=== PATIENT | male | born 1945 | race Caucasian/White ===

== ENCOUNTER 2017-09-16 09:58 | Day surgery (SDC) | payer MEDICARE, OTHER ==
[~2017-09-16] VITALS: Ht 180.3 cm; Wt 152.9 kg
[~2017-09-16 09:58] MED LIST: LISI5 PO; METO50 PO; OMEP20ER PO; POTA10T PO; PRAV20 PO; TRAM50 PO
[2017-09-16] MEDS ORDERED: WARF10 (10:44)
[2017-09-16] MEDS ORDERED: FURO20 (10:44)
== END 2017-09-16 12:00 | disposition home or self-care (01) ==
LOC: ORSCSDS 09:58
PROVIDERS: Internal Medicine Gastroenterology
PROC: 0DJD8ZZ Inspection of Lower Intestinal Tract, Via Natural or Artificial Opening Endoscopic (ICD-10-PCS; principal; 2017-09-16 11:15)
DX: K62.5 Hemorrhage of anus and rectum (principal); K57.30 Diverticulosis of large intestine without perforation or abscess without bleeding; K64.8 Other hemorrhoids; I25.10 Atherosclerotic heart disease of native coronary artery without angina pectoris; I10 Essential (primary) hypertension; E78.5 Hyperlipidemia, unspecified; G47.30 Sleep apnea, unspecified; Z68.42 Body mass index [BMI] 45.0-49.9, adult; E66.9 Obesity, unspecified; Z79.01 Long term (current) use of anticoagulants; Z79.82 Long term (current) use of aspirin; Z79.899 Other long term (current) drug therapy
CPT/HCPCS: J7120

== ENCOUNTER 2018-08-11 06:10 | Day surgery (SDC) | payer MEDICARE, OTHER ==
[~2018-08-11] VITALS: Ht 180.3 cm; Wt 131.2 kg
[~2018-08-11 06:10] MED LIST changes: +ALBU90OI61; +FURO20; +Flovent 110 MCG12 GM; +LO-DOSE ASPIRIN81 MG; +LOMAIRA8 MG; +METO25; +TOPI50; +WARF10
== END 2018-08-11 08:37 | disposition home or self-care (01) ==
LOC: ORSCSDS 06:10
PROVIDERS: Surgery
PROC: 0JB70ZZ Excision of Back Subcutaneous Tissue and Fascia, Open Approach (ICD-10-PCS; principal; 2018-08-11 07:30)
DX: D17.1 Benign lipomatous neoplasm of skin and subcutaneous tissue of trunk (principal); I10 Essential (primary) hypertension; J45.909 Unspecified asthma, uncomplicated; I25.10 Atherosclerotic heart disease of native coronary artery without angina pectoris; Z79.01 Long term (current) use of anticoagulants; Z79.82 Long term (current) use of aspirin; Z79.899 Other long term (current) drug therapy
CPT/HCPCS: 88305; J2001; J2250; J3010; J7120

== ENCOUNTER 2018-11-23 10:31 | Day surgery (SDC) | payer MEDICARE, OTHER ==
[2018-11-22 15:25] LABS: International Normalized Ratio 1.02; Prothrombin Time Results 10.8 Sec (9.7-11.5)
[~2018-11-23] VITALS: Ht 177.8 cm; Wt 128.0 kg
[~2018-11-23 10:31] MED LIST changes: -ALBU90OI61; +ALBU90OI61 INH; -FURO20; +FURO20 PO; +IBUP800 PO; -LO-DOSE ASPIRIN81 MG; -LOMAIRA8 MG; +LOMAIRA8 MG PO; -METO25; +METO25 PO; +TOPI25 PO; +WARF1 PO; +[UNRECOGNIZED DRUG - OTHER] PO
--- NOTE | 2018-11-23 11:05 | NUR ---
PT ADMITTED TO [facility]. AGREES WITH PLANNED SURGER. LUNG SOUNDS COURSE T/O.
--- NOTE | 2018-11-23 11:27 | NUR ---
NOZIN TO NARES BILATERALLY PER ORDER.
--- NOTE | 2018-11-23 14:40 | NUR ---
11/23/18 1440 Hitesh Rojo PT NOTED TO HAVE "POST" MISSING ON IMPLANTED DEVICE S/P CLOSURE OF INCISION BY DR BONDS. PT RE-PREPPED AND DRAPED IN STERILE FASHION, INCISION RE-OPENED AND POST IMPLANTED BY DR BONDS.
--- NOTE | 2018-11-23 17:40 | NUR ---
PROGRESS 1656: PATIENT ADMIN DILAUDID FOR PAIN, REPORTED ESCALATED QUICKLY SPINAL WORE OFF. 1725: 140/63 HR 40 RESP 16 BIOX 98. PATIENT DOZING, AWAKENS EASILY, THEN HR 50. O2 AT 1 L PLACED. [address] BONDS TO INFORM OF HR. NO FURTHER ORDERS. WILL CONT TO MONITOR.
--- NOTE | 2018-11-23 18:10 | NUR ---
PATIENT AWAKE, TAKING DINNER. HR IN 50'S. OTHER VSS. STATES PAIN TOLERABLE.
--- NOTE | 2018-11-23 18:50 | NUR ---
SUMMARY PATIENT STATES HE FEELS MORE COMFORTABLE AFTER EATING AND REPOSITIONED. HR REMAINS IN 50'S. CONTINUOUS MONITOR. REPORT TO NUNU SMITH. LIVESTOCK COUNTER ASSISTING WITH URINAL.
--- NOTE | 2018-11-24 04:44 | NUR ---
SHIFT SUMMARY: PT POD #1 FOR LEFT TOTAL KNEE. A&O X4. VS WNL. AQUACEL DRESSING CDI WITH POLAR PACK IN PLACE. PAIN MANAGED WITH TYLENOL, TORADOL AND 10MG JUSTIN PER EMAR. PT OUT OF BED TO BATHROOM W/FWW + 1 MINIMAL ASSIST. AMBULATED HALLWAY X1. PT OUT OF BED AND SITTING IN CHAIR THIS MORNING. VOIDING WELL. HONORIO PO. DENIES N/V. SALINE LOCKED.
[2018-11-24 05:18] LABS: BASOPHILS ABSOLUTE AUTO 0.04 K/mm3 (0.00-0.23); BASOPHILS PERCENT AUTO 0 % (0-2); EOSINOPHILS ABSOLUTE AUTO 0.13 K/mm3 (0.00-0.68); EOSINOPHILS PERCENT AUTO 1 % (0-6); Hematocrit 40.5 % (37.0-53.0); IMMATURE GRAN ABSOLUTE AUTO 0.03 K/mm3 (0.00-0.10); IMMATURE GRAN PERCENT AUTO 0 % (0-1); LYMPHOCYTES ABSOLUTE AUTO 1.23 K/mm3 (0.84-5.20); LYMPHOCYTES PERCENT AUTO 12 % (21-46); MONOCYTES ABSOLUTE AUTO 0.84 K/mm3 (0.16-1.47); MONOCYTES PERCENT AUTO 8 % (4-13); Mean Corpuscular HGB 31.6 pg (26.0-34.0); Mean Corpuscular HGB Conc 32.1 g/dL (31.5-36.5); Mean Corpuscular Volume 99 fL (80-100); Mean Platelet Volume 10.2 fL (9.1-12.4); NEUTROPHILS ABSOLUTE AUTO 7.95 K/mm3 (1.96-9.15); NEUTROPHILS PERCENT AUTO 78 % (41-73); Platelet Count 160 K/mm3 (150-400); RDW Coefficient Variation 13.3 % (11.7-14.2); RDW Standard Deviation 47.5 fL (35.1-46.3); Red Blood Cell Count 4.11 M/mm3 (4.30-5.90); White Blood Cell Count 10.22 K/mm3 (4.00-11.30)
[2018-11-24 05:32] LABS: International Normalized Ratio 1.01; Prothrombin Time Results 10.7 Sec (9.7-11.5)
[2018-11-24 05:44] LABS: Anion Gap 4 mmol/L (6-16); Blood Urea Nitrogen 23 mg/dL (8-24); Bun/Creatinine Ratio 28.6 (12.0-20.0); CO2, Blood 27 mmol/L (21-32); Calcium, Blood 8.5 mg/dL (8.5-10.1); Chloride, Blood 109 mmol/L (98-108); Glomerular Filtration Rate >60 (60-); Glucose, Blood 99 mg/dL (70-99); Magnesium, Blood 2.2 mg/dL (1.6-2.4); Potassium, Blood 4.4 mmol/L (3.5-5.5); Sodium, Blood 140 mmol/L (136-145)
[2018-11-24] MEDS ORDERED: ENOX40I SC ×2 (10:51)
[2018-11-24] MEDS ORDERED: Percocet 5-3251 EACH PO ×2 (10:52)
--- NOTE | 2018-11-24 15:33 | NUR ---
PATIENT D/C'D HOME WITH AT THIS TIME; BOTH STATE UNDERSTANDING OF MEDS (WARFARIN ADMINISTERED THIS AM PER DR BONDS ORDER,) F/U WITH PCP ON TUESDAY FOR PT/INR, LOVENOX ADMINISTRATION (PATIENT HAS HAD IN PAST,) ACTIVITY, OP PT, WOUND CARE AND F/U APPT. PATIENT STATES PAIN WELL CONTROLLED WITH PO MED. TOLERATING PO. VOIDING. NO C/O AT THIS TIME.
== END 2018-11-24 15:35 | disposition home or self-care (01) ==
LOC: ORSCMMR 10:31 → ORD 12:30 → SURS 16:32 → ORSCMMR 11-24 15:35
PROVIDERS: Orthopaedic Surgery
PROC: 0SRD0J9 Replacement of Left Knee Joint with Synthetic Substitute, Cemented, Open Approach (ICD-10-PCS; principal; 2018-11-23 12:30)
DX: M17.12 Unilateral primary osteoarthritis, left knee (principal); I10 Essential (primary) hypertension; E78.5 Hyperlipidemia, unspecified; G47.33 Obstructive sleep apnea (adult) (pediatric); K21.9 Gastro-esophageal reflux disease without esophagitis; E66.01 Morbid (severe) obesity due to excess calories; Z68.41 Body mass index [BMI] 40.0-44.9, adult; Z79.01 Long term (current) use of anticoagulants; Z79.82 Long term (current) use of aspirin; Z79.899 Other long term (current) drug therapy
CPT/HCPCS: 36415; 73560-LT; 80048; 83735; 85025; 85610; 85730; 86850; 86900; 86901; 88300; 97110; 97116; 97162; 97530; C1713; C1776; J0171; J0690; J0735; J1170; J1650; J1885; J2250; J2704; J2795; J7120

== ENCOUNTER 2018-11-27 09:55 | Emergency (ER) | payer MEDICARE, OTHER ==
[~2018-11-27] VITALS: Ht 180.3 cm; Wt 126.5 kg
[~2018-11-27 09:55] MED LIST changes: +ENOX40I SC; +Percocet 5-3251 EACH PO
[2018-11-27 10:38] LABS: BASOPHILS ABSOLUTE AUTO 0.06 K/mm3 (0.00-0.23); BASOPHILS PERCENT AUTO 1 % (0-2); EOSINOPHILS ABSOLUTE AUTO 0.04 K/mm3 (0.00-0.68); EOSINOPHILS PERCENT AUTO 0 % (0-6); Hematocrit 32.2 % (37.0-53.0); Hemoglobin 10.5 g/dL (13.5-17.5); IMMATURE GRAN ABSOLUTE AUTO 0.05 K/mm3 (0.00-0.10); IMMATURE GRAN PERCENT AUTO 0 % (0-1); LYMPHOCYTES ABSOLUTE AUTO 1.15 K/mm3 (0.84-5.20); LYMPHOCYTES PERCENT AUTO 10 % (21-46); MONOCYTES ABSOLUTE AUTO 1.25 K/mm3 (0.16-1.47); MONOCYTES PERCENT AUTO 11 % (4-13); Mean Corpuscular HGB 32.4 pg (26.0-34.0); Mean Corpuscular HGB Conc 32.6 g/dL (31.5-36.5); Mean Corpuscular Volume 99 fL (80-100); Mean Platelet Volume 10.2 fL (9.1-12.4); NEUTROPHILS ABSOLUTE AUTO 8.77 K/mm3 (1.96-9.15); NEUTROPHILS PERCENT AUTO 78 % (41-73); Platelet Count 189 K/mm3 (150-400); RDW Coefficient Variation 13.5 % (11.7-14.2); RDW Standard Deviation 49.5 fL (35.1-46.3); Red Blood Cell Count 3.24 M/mm3 (4.30-5.90); White Blood Cell Count 11.32 K/mm3 (4.00-11.30)
[2018-11-27] MEDS ORDERED: TRAZ50 PO (10:53)
[2018-11-27 11:01] LABS: Alanine Aminotransfer (ALT/SGP 26 U/L (12-78); Albumin, Blood 2.5 g/dL (3.4-5.0); Albumin/Globulin Ratio 0.6 (0.8-1.8); Alk Phos 100 U/L (50-136); Anion Gap 9 mmol/L (6-16); Aspartate Aminotrans (AST/SGOT 21 U/L (12-37); Bilirubin, Total 0.5 mg/dL (0.1-1.0); Blood Urea Nitrogen 28 mg/dL (8-24); Bun/Creatinine Ratio 29.7 (12.0-20.0); CO2, Blood 23 mmol/L (21-32); Calcium, Blood 8.5 mg/dL (8.5-10.1); Chloride, Blood 106 mmol/L (98-108); Creatinine, Blood 0.94 mg/dL (0.60-1.20); Globulin, Blood 3.9 g/dL (2.2-4.0); Glomerular Filtration Rate >60 (60-); Glucose, Blood 110 mg/dL (70-99); Potassium, Blood 4.3 mmol/L (3.5-5.5); Sodium, Blood 138 mmol/L (136-145); Total Protein, Blood 6.4 g/dL (6.4-8.2); Troponin I <0.015 ng/mL (0.000-0.040)
== END 2018-11-27 12:37 | disposition home or self-care (01) ==
LOC: ER 09:55
PROVIDERS: Emergency Medicine
DX: R06.02 Shortness of breath (principal); Z88.8 Allergy status to other drugs, medicaments and biological substances; Z79.899 Other long term (current) drug therapy; Z79.01 Long term (current) use of anticoagulants; I25.10 Atherosclerotic heart disease of native coronary artery without angina pectoris; Z96.652 Presence of left artificial knee joint
CPT/HCPCS: 36415; 71046; 71260; 80053; 83880; 84484; 85025; 93005; 93010; 99285-25; Q9967

== ENCOUNTER 2020-05-13 12:54 | Inpatient (IN) | payer MEDICARE, OTHER ==
[~2020-05-13] VITALS: Ht 180.3 cm; Wt 140.6 kg
[~2020-05-13 12:54] MED LIST changes: -PRAV20 PO; +Pravachol40 MG PO; +TRAZ50 PO
[2020-05-13] MEDS ORDERED: OXYCODONE-ACET1 EAC3 PO (15:55)
[2020-05-13] MEDS ORDERED: JANTOVEN PO (15:55)
[2020-05-13] MEDS ORDERED: OMEPRAZOLE MAGN20 M1 PO (15:56)
[2020-05-13] MEDS ORDERED: FURO20 PO (15:57)
[2020-05-13] MEDS ORDERED: WARF10 PO (16:18)
[2020-05-13 17:35] LABS: BASOPHILS ABSOLUTE AUTO 0.07 K/mm3 (0.00-0.23); BASOPHILS PERCENT AUTO 1 % (0-2); EOSINOPHILS ABSOLUTE AUTO 0.04 K/mm3 (0.00-0.68); EOSINOPHILS PERCENT AUTO 0 % (0-6); Hematocrit 42.7 % (37.0-53.0); Hemoglobin 13.9 g/dL (13.5-17.5); IMMATURE GRAN ABSOLUTE AUTO 0.03 K/mm3 (0.00-0.10); IMMATURE GRAN PERCENT AUTO 0 % (0-1); LYMPHOCYTES ABSOLUTE AUTO 1.38 K/mm3 (0.84-5.20); LYMPHOCYTES PERCENT AUTO 12 % (21-46); MONOCYTES ABSOLUTE AUTO 0.68 K/mm3 (0.16-1.47); MONOCYTES PERCENT AUTO 6 % (4-13); Mean Corpuscular HGB 31.8 pg (26.0-34.0); Mean Corpuscular HGB Conc 32.6 g/dL (31.5-36.5); Mean Corpuscular Volume 98 fL (80-100); Mean Platelet Volume 10.1 fL (9.1-12.4); NEUTROPHILS ABSOLUTE AUTO 9.44 K/mm3 (1.96-9.15); NEUTROPHILS PERCENT AUTO 81 % (41-73); Platelet Count 185 K/mm3 (150-400); RDW Coefficient Variation 13.3 % (11.7-14.2); RDW Standard Deviation 48.7 fL (35.1-46.3); Red Blood Cell Count 4.37 M/mm3 (4.30-5.90); White Blood Cell Count 11.64 K/mm3 (4.00-11.30)
[2020-05-13 17:49] LABS: International Normalized Ratio 1.64; Prothrombin Time Results 17.1 Sec (9.7-11.5)
[2020-05-13 17:50] LABS: Alanine Aminotransfer (ALT/SGP 22 U/L (12-78); Albumin, Blood 3.1 g/dL (3.4-5.0); Albumin/Globulin Ratio 0.9 (0.8-1.8); Alk Phos 140 U/L (50-136); Anion Gap 7 mmol/L (6-16); Aspartate Aminotrans (AST/SGOT 16 U/L (12-37); Bilirubin, Total 0.4 mg/dL (0.1-1.0); Blood Urea Nitrogen 25 mg/dL (8-24); CO2, Blood 23 mmol/L (21-32); Calcium, Blood 8.7 mg/dL (8.5-10.1); Chloride, Blood 111 mmol/L (98-108); Creatinine, Blood 0.76 mg/dL (0.60-1.20); Globulin, Blood 3.4 g/dL (2.2-4.0); Glomerular Filtration Rate >60 (60-); Glucose, Blood 104 mg/dL (70-99); Potassium, Blood 4.3 mmol/L (3.5-5.5); Sodium, Blood 141 mmol/L (136-145); Total Protein, Blood 6.5 g/dL (6.4-8.2)
[2020-05-13 19:42] LABS: Influenza A, PCR Negative (NEGATIVE); Influenza B, PCR Negative (NEGATIVE); Resp Syncytial Virus, PCR Negative (NEGATIVE); SARS-Cov-2 (COVID-19) PCR, MMC Negative (NEGATIVE)
--- NOTE | 2020-05-13 20:59 | NUR ---
05/13/202058 Heidy Crum PT ON SCHEDULED ANTIBIOTICS AND RECIVED IN ER. CONFIRMED WITH DR MENJIVAR.
--- NOTE | 2020-05-13 22:59 | NUR ---
PT ARRIVES TO ICU 14 PER ICU PACU POST RIGHT HIP SURGERY. PT HAD FALLEN AT HOME IN THE SHOWER. PT ARRIVES VERY DROWSY. DOES AWAKEN COMPLAINING OF HIP AND BI LATERAL HIP PAIN. STATES 13/10 PAIN. WHEN READDRESSING 1-10 SCALE, PT STATES 10. MEDICATED PT WITH 25 MCG'S FENTANYL. PT FALLS ASLEEP. WILL MONITOR.
--- NOTE | 2020-05-14 00:06 | NUR ---
PT LEAVES ICU - PACU TO ROOM 221 ON SURGICAL FLOOR. REPORT CALLED TO LUIS MCKEON. ALLOWED FOR QUESTIONS. TIME OF TRANSFER 1073. PT MEDICATED WITH TOTAL OF 75 MCG'S FENTANYL WHICH PT STATES IS HELPFUL. PT LEAVES IN STABLE CONDITION. ALERT AND ORIENTED. HAD CALLED EARLIER, AND UPDATE WAS GIVEN.
--- NOTE | 2020-05-14 00:37 | NUR ---
ARRIVES TO ROOM S/P RIGHT TIB/FIB ORIF FROM OPEN FX AFTER A FALL IN THE SHOWER. PT IS ALERT, PAIN TOLERABLE, NO N/V, VSS. RIGHT LE IS SATURDATED ON POSTERIOR DRESSING. RE-INFORCED WITH GAUZE AND SECURED WITH TOMER WRAP. PT ABLE TO WIGGLES TOES, BRISK CAP REFIL. DENIES N/T.
--- NOTE | 2020-05-14 00:51 | NUR ---
PT EATING, WAS ABLE TO VOID. SPEAKING ON PHONE WITH SPOUSE. MEDICATED FOR PAIN. CALL LIGHT IN REACH.
--- NOTE | 2020-05-14 03:48 | NUR ---
SHIFT SUMMARY: POD 1 RIGHT TIB/FIB REPAIR PATIENT IS ALERT AND ORIENTED X4 WHILE AWAKE. HE SEEMS TO HAVE SLEPT ON AND OFF THROUGHOUT SHIFT. WHILE ASLEEP HE IS EASILY AROUSABLE. HE IS ON 2 L OXYGEN AND AT >90% OXYGEN SATS. PAIN IS TOLERABLE AT THIS TIME, BUT HAS PAIN MEDICATIONS PRN IN EMAR ORDERS. TOMER WRAP HAS ALREADY HAD TO BE CHANGED TWICE THIS SHIFT SINCE IT HAS SOAKED THROUGH THE BOTTOM OF TOMER BANDAGE WITH BLOOD. IT HAS BEEN RE-WRAPPED WITH TOMER AND ABD PAD. HE IS ON TELE AND HAS BEEN SR WITH 1 DEGREE BLOCKS @ 96 BPM. HE IS A VERY NICE ZACHAYR TO WORK WITH. HE CALLS APPROPRIATELY WHEN NEEDING SOMETHING. CALL LIGHT IS WITHIN REACH. THE PLAN IS TO COLLECT LABS AND START HEPERAIN DRIP AT 1200. IT IS ALSO TO ENCOURAGE PO FLUIDS AND NUTRITION. WELL CONTROL PAIN.
[2020-05-14 04:21] LABS: BASOPHILS ABSOLUTE AUTO 0.04 K/mm3 (0.00-0.23); BASOPHILS PERCENT AUTO 0 % (0-2); EOSINOPHILS PERCENT AUTO 0 % (0-6); Hematocrit 43.5 % (37.0-53.0); Hemoglobin 13.8 g/dL (13.5-17.5); IMMATURE GRAN ABSOLUTE AUTO 0.07 K/mm3 (0.00-0.10); IMMATURE GRAN PERCENT AUTO 0 % (0-1); LYMPHOCYTES ABSOLUTE AUTO 0.84 K/mm3 (0.84-5.20); LYMPHOCYTES PERCENT AUTO 5 % (21-46); MONOCYTES ABSOLUTE AUTO 0.95 K/mm3 (0.16-1.47); MONOCYTES PERCENT AUTO 6 % (4-13); Mean Corpuscular HGB 31.4 pg (26.0-34.0); Mean Corpuscular HGB Conc 31.7 g/dL (31.5-36.5); Mean Corpuscular Volume 99 fL (80-100); Mean Platelet Volume 10.2 fL (9.1-12.4); NEUTROPHILS ABSOLUTE AUTO 14.69 K/mm3 (1.96-9.15); NEUTROPHILS PERCENT AUTO 89 % (41-73); Platelet Count 177 K/mm3 (150-400); RDW Coefficient Variation 13.6 % (11.7-14.2); RDW Standard Deviation 49.5 fL (35.1-46.3); White Blood Cell Count 16.59 K/mm3 (4.00-11.30)
[2020-05-14 04:35] LABS: International Normalized Ratio 1.92; Prothrombin Time Results 19.8 Sec (9.7-11.5)
[2020-05-14 04:38] LABS: Anion Gap 6 mmol/L (6-16); Blood Urea Nitrogen 22 mg/dL (8-24); Bun/Creatinine Ratio 30.5 (12.0-20.0); CO2, Blood 23 mmol/L (21-32); Calcium, Blood 8.5 mg/dL (8.5-10.1); Chloride, Blood 111 mmol/L (98-108); Creatinine, Blood 0.72 mg/dL (0.60-1.20); Glomerular Filtration Rate >60 (60-); Glucose, Blood 139 mg/dL (70-99); Potassium, Blood 4.3 mmol/L (3.5-5.5); Sodium, Blood 140 mmol/L (136-145)
--- NOTE | 2020-05-14 07:23 | NUR ---
pt reporting muscle spasms to r leg will notify dr nannette storey when office opens for med pt stated at first it helped to elev on pillows stated it is happenening every 45 sec 12/09 pain leg elev
--- NOTE | 2020-05-14 09:00 | NUR ---
message left with dr nannette storey office for muscle relaxer iv pain meds given
--- NOTE | 2020-05-14 11:43 | NUR ---
heparin gtt started
--- NOTE | 2020-05-14 12:13 | NUR ---
DR HORTON CALLED FOR FLEXARIL 10 MG PO GIVEN FOR MUSCLE SPASMS
--- NOTE | 2020-05-14 16:53 | NUR ---
dr nannette storey by to see pt dressing changed ok to bear weight
--- NOTE | 2020-05-14 17:20 | NUR ---
pt eating dinner visiting with family
--- NOTE | 2020-05-14 18:22 | NUR ---
PT REPORTING INC BURNING TO THE TOP OF HIS LEG TRIED REPOSISTIONING DID NOT HELP IV PAIN MEDS GIVEN
[2020-05-15 03:13] LABS: BASOPHILS ABSOLUTE AUTO 0.05 K/mm3 (0.00-0.23); BASOPHILS PERCENT AUTO 0 % (0-2); EOSINOPHILS ABSOLUTE AUTO 0.23 K/mm3 (0.00-0.68); EOSINOPHILS PERCENT AUTO 2 % (0-6); Hematocrit 35.9 % (37.0-53.0); Hemoglobin 11.6 g/dL (13.5-17.5); IMMATURE GRAN ABSOLUTE AUTO 0.04 K/mm3 (0.00-0.10); IMMATURE GRAN PERCENT AUTO 0 % (0-1); LYMPHOCYTES ABSOLUTE AUTO 1.66 K/mm3 (0.84-5.20); LYMPHOCYTES PERCENT AUTO 15 % (21-46); MONOCYTES ABSOLUTE AUTO 1.19 K/mm3 (0.16-1.47); MONOCYTES PERCENT AUTO 11 % (4-13); Mean Corpuscular HGB 31.6 pg (26.0-34.0); Mean Corpuscular HGB Conc 32.3 g/dL (31.5-36.5); Mean Corpuscular Volume 98 fL (80-100); Mean Platelet Volume 9.9 fL (9.1-12.4); NEUTROPHILS ABSOLUTE AUTO 7.95 K/mm3 (1.96-9.15); NEUTROPHILS PERCENT AUTO 72 % (41-73); Platelet Count 143 K/mm3 (150-400); RDW Standard Deviation 50.7 fL (35.1-46.3); Red Blood Cell Count 3.67 M/mm3 (4.30-5.90); White Blood Cell Count 11.12 K/mm3 (4.00-11.30)
[2020-05-15 03:31] LABS: Alanine Aminotransfer (ALT/SGP 18 U/L (12-78); Albumin, Blood 2.6 g/dL (3.4-5.0); Albumin/Globulin Ratio 0.8 (0.8-1.8); Alk Phos 117 U/L (50-136); Anion Gap 4 mmol/L (6-16); Aspartate Aminotrans (AST/SGOT 15 U/L (12-37); Bilirubin, Total 0.4 mg/dL (0.1-1.0); Blood Urea Nitrogen 20 mg/dL (8-24); Bun/Creatinine Ratio 25.8 (12.0-20.0); CO2, Blood 26 mmol/L (21-32); Calcium, Blood 7.9 mg/dL (8.5-10.1); Chloride, Blood 111 mmol/L (98-108); Creatinine, Blood 0.78 mg/dL (0.60-1.20); Globulin, Blood 3.1 g/dL (2.2-4.0); Glomerular Filtration Rate >60 (60-); Glucose, Blood 115 mg/dL (70-99); Sodium, Blood 141 mmol/L (136-145); Total Protein, Blood 5.7 g/dL (6.4-8.2)
[2020-05-15 03:40] LABS: International Normalized Ratio 2.93; Prothrombin Time Results 29.5 Sec (9.7-11.5)
--- NOTE | 2020-05-15 03:50 | NUR ---
SHIFT SUMMARY: POD 2 TIB/FIB REPAIR PATIENT IS ALERT AND ORIENTED X4 WHILE AWAKE. HE HAS BEEN ON AND OFF SLEEPING THROUGHOUT SHIFT, BUT WHEN HE IS ASLEEP HE IS EASILY AROUSABLE. PAIN IS MANAGED WITH IV DILAUDID AND FLEXERIL FOR THE LEG CRAMPS THIS SHIFT. PATIENT JUST HAD A CRITICAL HIGH OF aPPT OF 109.3 THIS MORNING. PHARMACY CONTACTED DR. CARR AND HE SAID TO STOP THE HEPARIN SINCE HIS INR IS WITHIN THERAPEUTIC RANGE. HIS TOMER BANAGE WITH GAUZE ARE D/C/I THROUGHOUT SHIFT. BOTH LEGS ARE ELEVATED ON BLANKETS AND HAS BEEN REPOSITIONED WHEN REQUESTED BY PATIENT. HE DENIES NUMBNESS AND TINGLING AND IS ABLE TO WIGGLE FINGERS AND TOES. HE IS ON TELE AND HAS BEEN SR WITH 1 DEGREE HB. HE IS VOIDING AND HONORIO PO INTAKE. HE CALLS APPROPRIATELY. CALL LIGHT WITHIN REACH. THE PLAN IS TO WORK WITH PT/OT TODAY, ENCOURAGE PO FLUIDS/NUTRITION, AND PAIN CONTROL.
--- NOTE | 2020-05-15 04:43 | NUR ---
PATIENT REPORTS COMPLAINING OF A "BURNING" SENSATION ON THE TOP OF HIS RIGHT FOOT. BOTH FEET ARE ELEVATED WITH BLANKETS. HE IS ABLE TO WIGGLE TOES AND IS WARM/PINK. THE BURNING SENSATION DECREASES WHEN GIVEN IV DILAUDID. CHARGE NURSE RICA ALSO CHECKED IN ON THE PATIENT WITH THIS NURSE. RICA STATED TO PATIENT TO WIGGLE TOES TO IMPROVE CIRCULATION AND PROVIDE ICE PACKS IF NEEDED. CALL LIGHT WITHIN REACH.
--- NOTE | 2020-05-15 11:06 | NUR ---
PERMISSION THE PATIENT GAVE PERMISSION TO THIS STUDENT NURSE TO CARE FOR HIM DURING CLINICAL SHIFT.
--- NOTE | 2020-05-15 17:54 | NUR ---
SUMMARY PT HAS DECLINED OFFERS OF PAIN MEDICATION THIS SHIFT, REPORTS PAIN LEVEL IS ACCEPTABLE TO HIM. PT DENIES ANY CHANGE IN PAIM OR SENSATION TO RIGHT FOOT OR LEG. DRESSING TO RLE CLEAN AND DRY.
--- NOTE | 2020-05-16 04:52 | NUR ---
SHIFT SUMMARY: PT POD#3 FOR ORIF TO RLE. DRESSING C/D/I WITHOUT VISIBLE DRAINAGE. EXTREMITY ELEVTAED ON PILLOW THROUGHOUT SHIFT. PT HAVING A DIFFICULT TIME GETTING COMFORTABLE. REPOSITIONED Q2 WITH TWO MAX ASSIST. PT DENIES PAIN AND DECLINES NEED FOR PAIN MEDICATION. ABLE TO WIGGLE TOES. CAP REFILL WNL. DENIES N/T. SINUS TACH AT 105 WITH FIRST DEGREE HB PER TELE. PT REQUIRING ASSISTANCE WITH URINAL. VOIDING WELL. O2 STABLE ON RA. CONT BIOX IN PLACE.
[2020-05-16 05:05] LABS: International Normalized Ratio 1.59; Prothrombin Time Results 16.6 Sec (9.7-11.5)
--- NOTE | 2020-05-16 14:25 | NUR ---
PRUNE JUICE WITH MELTED BUTTER GIVEN PT TELLS ME HE HAS NOT HAD BM SINCE ADMIT
--- NOTE | 2020-05-16 18:05 | NUR ---
PT REPORTS ADEQUATE PAIN CONTROL WITH PO MEDS. RIGHT LEG ELEVATED ON PILLOWS THROUGHOUT SHIFT. DRESSING TO RIGHT LEG DRY AND INTACT. RIGHT FOOT PINK AND WARM, ABLE TO MOVE TOES. PT REPORTS SENSATION TO RLE UNCHANGED THROUGHOUT THIS SHIFT. PT ABLE TO SIT ON EDGE OF BED THIS EVENING FOR DINNER, PT REQUIRES ENCOURAGEMENT TO MOVE SELF IN BED. PT REPORTS PASSING LARGE AMOUNTS OF FLATUS DENIES ABD PAIN OR FEELING THAT HE IS CONSTIPATED
--- NOTE | 2020-05-17 05:39 | NUR ---
SHIFT SUMMARY POD#4. AAOX4. DISCOMFORT CONTROLLED WITH 1 ROXICODONE Q4H. NO NAUSEA/EMESIS. DRESSING TO RIGHT LEG C/D/I. MOVES TOES WELL BLE, CAP REFILL BRISK, UNABLE TO ASSESS PULSES RLE. DENIES N/T BLE. PT RESTED WELL T/O NIGHT. PT UP TO DANGLE AT BEDSIDE TO URINATE, SBA. CONTINUE TO ENCOURAGE REPOSITIONING WHILE IN BED + MOVEMENT TOLERATED PER ORDERS. PT CURRENTLY RESTING WELL IN BED WITH CALL LIGHT IN REACH.
[2020-05-17 06:06] LABS: International Normalized Ratio 1.34; Prothrombin Time Results 14.1 Sec (9.7-11.5)
--- NOTE | 2020-05-17 10:25 | NUR ---
DR HORTON HERE TO SEE PT. DISCUSSED HEPARIN BEING STARTED THIS AM.
--- NOTE | 2020-05-17 10:43 | NUR ---
DR HORTON BEEN HERE TO SEE PT THIS AM.
--- NOTE | 2020-05-17 14:18 | NUR ---
THERAPY WORKING WITH PT.
--- NOTE | 2020-05-17 18:05 | NUR ---
SHIFT SUMMARY PT BEEN ASSISTED WITH ADL'S PRN. PT HAD BM TODAY. PT BEEN VOIDING. PT UP TO CHAIR TODAY X2. PT WORKED WITH THERAPY. PT UP IN CHAIR FOR DINNER. PT USING CALL LIGHT APPR. PT HAS IV HEPARIN IN PLACE WHICH PHARMACY IS MANAGING. FAMILY PRESENT EARLIER TODAY.
[2020-05-18 04:26] LABS: International Normalized Ratio 1.6; Prothrombin Time Results 16.7 Sec (9.7-11.5)
--- NOTE | 2020-05-18 05:32 | NUR ---
SHIFT SUMMARY S/O R ORIF TIB/FIB.AOX4. VSS. AFEBRILE. NO ACUE CHANGES T/O SHIFT. PT IS A MOD 2 PERSON ASSIST. NO ACUTE CHANGES. PAIN IS MANAGED W/ 1 OXY Q4. HEPARIN STILL INFUSING, NO CHANGE W/ DOSE AND INFUSION RATE T/O THE SHIFT. INR REMAIN 1.60. PT DENIES CP/PRESSURE, NUMBNESS AND TINGLING SENSATION. HONORIO REG DIET DENIES N/V. CALL LIGHT W/IN REACH.
[2020-05-18 11:39] LABS: Influenza A, PCR Negative (NEGATIVE); Influenza B, PCR Negative (NEGATIVE); Resp Syncytial Virus, PCR Negative (NEGATIVE); SARS-Cov-2 (COVID-19) PCR, MMC Negative (NEGATIVE)
[2020-05-18 15:52] LABS: Platelet Count 189 K/mm3 (150-400)
--- NOTE | 2020-05-18 17:39 | NUR ---
Shift summary Pain controlled with 5mg Oxycodone. Patient is a 2 person to the BSC with a GB and FWW. was at bedside today offering support. Patient tolerating regular diet. Heparin drip infusing. Dressing CDI. Plan for patient to d/c to SNF when stable.
[2020-05-19 05:10] LABS: International Normalized Ratio 2.08; Prothrombin Time Results 21.4 Sec (9.7-11.5)
--- NOTE | 2020-05-19 06:23 | NUR ---
SHIFT SUMMARY PT IS A/O X4. USING URINAL TO VOID WITH ASSISTANCE. HAS BEEN REPOSITIONED MULT TIMES OVERNIGHT. PAIN MANAGED WITH PO PAIN MED PER ORDERS. DRESSING TO RLE CDI. HEPARIN DRIP TITRATED DOWN THIS SHIFT PER PHARMACY. PT RESTING IN BED AT THIS TIME, CALL LIGHT IN REACH.
[2020-05-19] MEDS ORDERED: CYCLOBENZAPRINE5 MG PO (12:16)
[2020-05-19] MEDS ORDERED: OXYC5 PO (12:16)
--- NOTE | 2020-05-19 13:41 | NUR ---
REPORT CALLED TO KEVIN AT [facility].
--- NOTE | 2020-05-19 15:39 | NUR ---
DISCHARGE PT DISCHARGED AT 1536. PT ALERT AND ORIENTED AT TIME OF DISCHARGE. HE REPORTED PAIN MANAGED AT 06/11. PT'S PRESENT AT TIME OF DISCHARGE. BELONGINGS RETURNED TO THE PT. PT ESCORTED OUT IN W/C FOR TRANSPORT. REPORT CALLED TO KEVIN AT [facility] AT 1330.
== END 2020-05-19 15:42 | disposition home or self-care (01) | DRG 494 ==
LOC: ER 12:54 → SURS 18:16 → ICUW 22:40 → SURS 23:46
PROVIDERS: Internal Medicine; Nurse Practitioner Acute Care; Orthopaedic Surgery; Pharmacist; Physician Assistant; ADMIT Family Medicine
PROC: 0QHG36Z Insertion of Intramedullary Internal Fixation Device into Right Tibia, Percutaneous Approach (ICD-10-PCS; principal; 2020-05-13 14:45)
DX: S82.201B Unspecified fracture of shaft of right tibia, initial encounter for open fracture type I or II (principal); S82.401A Unspecified fracture of shaft of right fibula, initial encounter for closed fracture; E78.5 Hyperlipidemia, unspecified; I10 Essential (primary) hypertension; K21.9 Gastro-esophageal reflux disease without esophagitis; Z95.2 Presence of prosthetic heart valve; W18.2XXA Fall in (into) shower or empty bathtub, initial encounter; Z91.81 History of falling; Z79.01 Long term (current) use of anticoagulants; M17.0 Bilateral primary osteoarthritis of knee; M16.0 Bilateral primary osteoarthritis of hip; Z20.822 Contact with and (suspected) exposure to COVID-19; Z96.652 Presence of left artificial knee joint
CPT/HCPCS: 0241U; 12004; 36415; 73590; 73610; 80048; 80053; 82947; 83735; 83880; 85025; 85049; 85610; 85730; 86850; 86900; 86901; 90471; 90714; 93005; 93010; 94762; 96374-59; 97110; 97162; 97530; 99284-25; A9270; C1713; C1769; J0690; J1100; J1170; J1644; J2405; J2704; J3010; J7040

== ENCOUNTER 2020-10-14 00:48 | Day surgery (SDC) | payer MEDICARE, OTHER ==
[~2020-10-14 00:48] MED LIST changes: +CYCLOBENZAPRINE5 MG PO; +JANTOVEN PO; +OMEPRAZOLE MAGN20 M1 PO; +OXYC5 PO; +OXYCODONE-ACET1 EAC3 PO; +WARF10 PO
== END 2020-10-14 22:47 | disposition home or self-care (01) ==
LOC: WOUND 00:48
DX: S31.100A Unspecified open wound of abdominal wall, right upper quadrant without penetration into peritoneal cavity, initial encounter (principal); X58.XXXA Exposure to other specified factors, initial encounter
CPT/HCPCS: G0463

== ENCOUNTER → 2022-12-21 | Outpatient (CLI) | payer MEDICARE, OTHER | LOC: LAB 15:23 → LAB SHORT 15:23 | DX: L02.92 Furuncle, unspecified (principal) | CPT/HCPCS: 87070; 87077; 87186; 87205 ==

== ENCOUNTER 2023-01-07 22:51 | Inpatient (IN) | payer MEDICARE, OTHER ==
[~2023-01-07] VITALS: Ht 180.3 cm; Wt 138.4 kg
[2023-01-07 23:57] LABS: BASOPHILS ABSOLUTE AUTO 0.06 K/mm3 (0.00-0.23); BASOPHILS PERCENT AUTO 0 % (0-2); EOSINOPHILS ABSOLUTE AUTO 0.19 K/mm3 (0.00-0.68); EOSINOPHILS PERCENT AUTO 1 % (0-6); Hematocrit 32.3 % (37.0-53.0); IMMATURE GRAN PERCENT AUTO 2 % (0-1); LYMPHOCYTES ABSOLUTE AUTO 1.49 K/mm3 (0.84-5.20); LYMPHOCYTES PERCENT AUTO 9 % (21-46); MONOCYTES ABSOLUTE AUTO 1.51 K/mm3 (0.16-1.47); MONOCYTES PERCENT AUTO 9 % (4-13); Mean Corpuscular HGB 30.4 pg (26.0-34.0); Mean Corpuscular Volume 98 fL (80-100); Mean Platelet Volume 10.4 fL (9.1-12.4); NEUTROPHILS ABSOLUTE AUTO 13.65 K/mm3 (1.96-9.15); NEUTROPHILS PERCENT AUTO 79 % (41-73); NRBC ABSOLUTE 0.04 K/mm3 (0.00-0.02); NRBC Auto 0.2 /100 WBC (0.0-0.2); Platelet Count 322 K/mm3 (150-400); RDW Coefficient Variation 15.9 % (11.7-14.2); RDW Standard Deviation 55.2 fL (35.1-46.3); Red Blood Cell Count 3.29 M/mm3 (4.30-5.90)
[2023-01-08] MEDS ORDERED: FERSU300 PO (00:05)
[2023-01-08] MEDS ORDERED: ATOR10 PO (00:05)
[2023-01-08] MEDS ORDERED: CLOP75 PO (00:05)
[2023-01-08] MEDS ORDERED: FOLI1 PO (00:05)
[2023-01-08] MEDS ORDERED: Aldactone25 MG PO (00:06)
[2023-01-08] MEDS ORDERED: METO50ER PO (00:06)
[2023-01-08] MEDS ORDERED: ENTRESTO 24 MG1 EACH PO (00:06)
[2023-01-08] MEDS ORDERED: ONDA4ODT MM (00:06)
[2023-01-08] MEDS ORDERED: FURO20 PO (00:07)
[2023-01-08 00:16] LABS: Albumin, Blood 2.5 g/dL (3.4-5.0); Albumin/Globulin Ratio 0.8 (0.8-1.8); Bilirubin, Total 0.9 mg/dL (0.1-1.0); Bun/Creatinine Ratio 41.1 (12.0-20.0); Calcium, Blood 7.8 mg/dL (8.5-10.1); Creatinine, Blood 0.9 mg/dL (0.60-1.20); Globulin, Blood 3.3 g/dL (2.2-4.0); Potassium, Blood 4.6 mmol/L (3.5-5.5); Total Protein, Blood 5.8 g/dL (6.4-8.2)
[2023-01-08 03:59] VITALS: BP 105/59
[2023-01-08] MEDS ORDERED: HYDR1TAB94 PO (04:21)
[2023-01-08 05:36] LABS: BASOPHILS ABSOLUTE AUTO 0.05 K/mm3 (0.00-0.23); BASOPHILS PERCENT AUTO 0 % (0-2); EOSINOPHILS ABSOLUTE AUTO 0.16 K/mm3 (0.00-0.68); EOSINOPHILS PERCENT AUTO 1 % (0-6); Hematocrit 31.8 % (37.0-53.0); Hemoglobin 9.9 g/dL (13.5-17.5); IMMATURE GRAN ABSOLUTE AUTO 0.29 K/mm3 (0.00-0.10); IMMATURE GRAN PERCENT AUTO 2 % (0-1); LYMPHOCYTES ABSOLUTE AUTO 1.52 K/mm3 (0.84-5.20); LYMPHOCYTES PERCENT AUTO 10 % (21-46); MONOCYTES ABSOLUTE AUTO 1.28 K/mm3 (0.16-1.47); MONOCYTES PERCENT AUTO 8 % (4-13); Mean Corpuscular HGB 30.5 pg (26.0-34.0); Mean Corpuscular HGB Conc 31.1 g/dL (31.5-36.5); Mean Corpuscular Volume 98 fL (80-100); Mean Platelet Volume 10.3 fL (9.1-12.4); NEUTROPHILS ABSOLUTE AUTO 11.99 K/mm3 (1.96-9.15); NEUTROPHILS PERCENT AUTO 79 % (41-73); NRBC ABSOLUTE 0.02 K/mm3 (0.00-0.02); NRBC Auto 0.1 /100 WBC (0.0-0.2); Platelet Count 281 K/mm3 (150-400); RDW Coefficient Variation 15.8 % (11.7-14.2); RDW Standard Deviation 54.5 fL (35.1-46.3); Red Blood Cell Count 3.25 M/mm3 (4.30-5.90); White Blood Cell Count 15.29 K/mm3 (4.00-11.30)
[2023-01-08 05:52] LABS: Albumin, Blood 2.4 g/dL (3.4-5.0); Albumin/Globulin Ratio 0.7 (0.8-1.8); Bun/Creatinine Ratio 37.8 (12.0-20.0); Calcium, Blood 7.6 mg/dL (8.5-10.1); Creatinine, Blood 0.9 mg/dL (0.60-1.20); Globulin, Blood 3.3 g/dL (2.2-4.0); Potassium, Blood 4.6 mmol/L (3.5-5.5); Total Protein, Blood 5.7 g/dL (6.4-8.2)
--- NOTE | 2023-01-08 06:17 | NUR ---
ARRIVAL TO PCU4 / SHIFT SUMMARY PT ARRIVED TO PCU4 AT APPROXIMATELY 0345. PT SLID OVER FROM ER GURNEY TO HOSPITAL BED BY 4 CLINICAL STAFF MEMBERS. PT A&Ox4, CALLS AND COMMUNICATES NEEDS APPROPRIATELY. BP STALBE, AFIB/PACED w/ PVCs 70's, DENIES CP/PRESSURE. SpO2> 92% RA, DENIES SOB. CONTINENT OF URINE AND BOWEL, USED URINAL AT BEDSIDE. PHOTOS OF WOUNDS IN CHART. ORIENTED TO CALL LIGHT/UNIT. CALL LIGHT IN REACH, BED IN LOWEST POSITION. NO OTHER EVENTS, WILL REPORT TO ONCOMING RN.
[2023-01-08 08:12] VITALS: BP 143/64
[2023-01-08 10:27] LABS: International Normalized Ratio 2.46; Prothrombin Time Results 24.5 Sec (9.7-11.5)
[2023-01-08] MEDS ORDERED: ALBU90OI INH (10:29)
[2023-01-08] MEDS ORDERED: SYMBICORT 160-4.6 GM INH (10:33)
[2023-01-08] MEDS ORDERED: OMEP20ER PO (10:34)
[2023-01-08] MEDS ORDERED: OXYCODONE-ACET1 EAC3 PO (10:36)
[2023-01-08] MEDS ORDERED: WARF10 PO (10:38)
[2023-01-08 11:51] VITALS: BP 120/58
--- NOTE | 2023-01-08 14:31 | NUR ---
ASSUMED CARE OF PT AT [address] HANSON IN ROOM APROX 0800, ROUNDED WITH THIS RN. PT'S LEGS ARE VERY SWOLLEN AND LEAKING FLUIDS, ABSORBENT PADS APPLIED AND LEGS WRAPPED WITH TOMER WRAP FOR COMPRESSION. PT EDUCATED ABOUT KEEPING HIS LEGS ELEVATED MUCH POSSIBLE. PT IS AWAKE, ALERT AND VERY [place]. SEE DOCUMENTED VS AND ASSESSMENT. PT OOB WITH 2P ASSIST, GAIT BELT AND WALKER TO RECLINER CHAIR. PT ABLE TO COMPLETE HIS ORAL CARE WITH SET UP ASSISTANCE. PHYSICAL THERPAY IN TO WORK WITH PT WELL. PT'S FAMILY IN TO VISIT, UPDATED ON PLAN OF CARE. IV LASIX GIVEN THIS AM, PT RESPONDED WELL WITH GOOD URINE OUTPUT. LLE WEEPING>RLE, TOMER WRAP REMOVED AND ABSORBENT DRESSING CHANGED, SWELLING HAS IMPROVED SINCE THIS AM. MEDICAL RECORDS REQUEST FAXED TO [facility] PER MD REQUEST. PT IS ABLE TO USE CALL LIGHT FOR NEEDS, CALL LIGHT IN REACH, WILL CONTINUE TO MONITOR.
[2023-01-08 16:33] VITALS: BP 134/69
--- NOTE | 2023-01-08 18:13 | NUR ---
NO ACUTE EVENTS SINCE LAST NOTE. FAMILY IN ROOM THIS AFTERNOON/EVENING AND UPDATED ON PLAN OF CARE. PT HAS NO COMPLAINTS. PT IS ABLE TO USE CALL LIGHT FOR NEEDS, CALL LIGHT IN REACH. WILL CONTINUE TO MONITOR AND GIVE REPORT TO ONCOMING RN.
[2023-01-08 19:35] VITALS: BP 112/51
[2023-01-09 00:03] VITALS: BP 114/55
[2023-01-09 03:04] VITALS: BP 104/61
[2023-01-09 04:16] LABS: International Normalized Ratio 2.17; Prothrombin Time Results 21.8 Sec (9.7-11.5)
--- NOTE | 2023-01-09 06:29 | NUR ---
End of shift note. Pt has had a good night. TOMER wraps removed at HS for skin protection. Pt has been repositioned as tolerated. 1 time order for pain medications was given overnight. May need addressed with day time to match home med list. Pt did refuse his HS entresto dose. Pt was educated on the parameters for BP holding but he still did not want the dose overnight. Pt seemed have short desats while sleeping, 2L nc placed and resolved issue. Pt is able to make needs known, call light is within reach.
[2023-01-09 07:28] VITALS: BP 130/76
[2023-01-09 12:53] VITALS: BP 107/61
--- NOTE | 2023-01-09 17:59 | NUR ---
ASSUMED CARE OF PT THIS AM AT 0700. DR HANSON ROUNDING BEFORE 0800, PT SLEEPING BUT EASILY AWOKEN. SEE DOCUMENTED VS AND ASSESSMENT. NO ACUTE EVENTS T/O THE SHIFT. PT OOB TO CHAIR FOR BREAKFAST, EDUCATED ON THE IMPORTANCE OF ELEVATING HIS LEGS MUCH POSSIBLE. BLEs WITH ABD PADS FOR SEROUS DRAINAGE AND WRAPPED IN TOMER BANDAGES FOR COMPRESSION. GOOD UO T/O DAY. PT'S FAMILY IN THIS AFTERNOON WITH QUESTIONS ABOUT HIS CURRENT MEDICATIONS. DISCUSSED WITH AND SON AT BEDSIDE. PT REQUESTS TO STOP ENTRESTO (DUE TO LOW BLOOD PRESSURES) AND RESTART LISINOPRIL INSTEAD. HE HAS TAKEN IT BEFORE HIS HOSPITALIZATION AT [facility] AND TOLERATED IT WELL WITHOUT HYPOTENSION. PT'S WOULD LIKE MD TO CALL HER TOMORROW WITH UPDATED PLAN OF CARE. PT ABLE TO USE CALL LIGHT FOR NEEDS, CALL LIGHT IN REACH. WILL CONTINUE TO MONITOR AND GIVE REPORT TO ONCOMING RN.
[2023-01-09 19:42] VITALS: BP 136/69
[2023-01-10 03:49] LABS: BASOPHILS ABSOLUTE AUTO 0.06 K/mm3 (0.00-0.23); BASOPHILS PERCENT AUTO 1 % (0-2); EOSINOPHILS ABSOLUTE AUTO 0.19 K/mm3 (0.00-0.68); EOSINOPHILS PERCENT AUTO 2 % (0-6); Hematocrit 30.5 % (37.0-53.0); Hemoglobin 9.4 g/dL (13.5-17.5); IMMATURE GRAN ABSOLUTE AUTO 0.21 K/mm3 (0.00-0.10); IMMATURE GRAN PERCENT AUTO 2 % (0-1); LYMPHOCYTES ABSOLUTE AUTO 0.94 K/mm3 (0.84-5.20); LYMPHOCYTES PERCENT AUTO 8 % (21-46); MONOCYTES ABSOLUTE AUTO 0.89 K/mm3 (0.16-1.47); MONOCYTES PERCENT AUTO 8 % (4-13); Mean Corpuscular HGB 30.5 pg (26.0-34.0); Mean Corpuscular HGB Conc 30.8 g/dL (31.5-36.5); Mean Corpuscular Volume 99 fL (80-100); Mean Platelet Volume 10.3 fL (9.1-12.4); NEUTROPHILS ABSOLUTE AUTO 9.09 K/mm3 (1.96-9.15); NEUTROPHILS PERCENT AUTO 80 % (41-73); Platelet Count 269 K/mm3 (150-400); RDW Coefficient Variation 16.4 % (11.7-14.2); RDW Standard Deviation 57.2 fL (35.1-46.3); Red Blood Cell Count 3.08 M/mm3 (4.30-5.90); White Blood Cell Count 11.38 K/mm3 (4.00-11.30)
[2023-01-10 04:02] VITALS: BP 114/63
[2023-01-10 04:05] LABS: International Normalized Ratio 2.8; Prothrombin Time Results 27.7 Sec (9.7-11.5)
[2023-01-10 04:06] LABS: Albumin, Blood 2.5 g/dL (3.4-5.0); Anion Gap 4 mmol/L (6-16); Blood Urea Nitrogen 25 mg/dL (8-24); Bun/Creatinine Ratio 28.7 (12.0-20.0); CO2, Blood 30 mmol/L (21-32); Chloride, Blood 106 mmol/L (98-108); Creatinine, Blood 0.87 mg/dL (0.60-1.20); Glomerular Filtration Rate 88 (60-); Glucose, Blood 112 mg/dL (70-99); Phosphorus, Blood 2.9 mg/dL (2.5-4.9); Potassium, Blood 4.4 mmol/L (3.5-5.5); Sodium, Blood 140 mmol/L (136-145)
--- NOTE | 2023-01-10 05:22 | NUR ---
SHIFT SUMMARY A/Ox4 AND COOPERATIVE WITH CARE, BUT IS [place]. ANSWERS QUESTIONS APPROPRIATELY AND ABLE TO MAKE HIS NEEDS KNOWN. NO ACUTE EVENTS OVERNIGHT FOR PT SLEPT FOR MOST OF THE SHIFT. CARDIAC, REMAINS IN PACED RYTHM 70-80's WITH OCCASIONAL PVCs NOTED. WITH NO REPORTS OF CP OR PRESSURE T/O THE NIGHT. SBP REMAINS STABLE RANGING 110-130's. RESPIRATORY, MAINTAINS SPO2 >94% ON RA WITH NO REPORTS OF SOB OR DYSPNEA AT REST. GI/, BLE WEEPING EDEMA CONTINUES TO BE PRESENT WITH SEVERAL BLISTERS FORMED/RUPTURED. TOMER WRAP REMOVED THIS PM WITH ALL DRESSINGS REPLACED TO KEEP C/D/I. TOMER WRAPPED TO BE REAPPLIED TOMORROW IN THE AM. PT CONTINUES TO BE DIURESED WITH GOOD URINE OUTPUT THIS SHIFT. BS PRESENT IN ALL QUADRANTS, BUT NO BM THIS SHIFT. PHYSICAL THERAPY ON BOARD TO HELP MANAGE RECENT LEFT HIP SURGERY WELL PREVENT DECONDITIONING. PAIN MANAGED WELL WITH PRN PAIN MEDICATIONS. ASSESSED PT FOR RISKS OF ANY IGNITION SOURCES WELL BEHAVIORS FOR INCREASED RISKS OF FIRE DANGER. PT EDUCATED ON COMMON SOURCES OF IGNITION WELL NEED TO KEEP A SAFE ENVIRONMENT. PT VOICED UNDERSTANDING. PT ALSO EDUCATED ON HIP/PACEMAKER PRECAUTIONS. NO NEW ORDERS AT THIS TIME, WILL REPORT TO ONCOMING RN. GERA VELÁZQUEZ OF THIS NOTE.
[2023-01-10 07:49] VITALS: BP 143/61
[2023-01-10 11:49] VITALS: BP 152/121
[2023-01-10 11:52] VITALS: BP 112/43
--- NOTE | 2023-01-10 12:11 | NUR ---
PT HAS BEEN VISITING WITH SEVERAL VISITORS THIS MORNING. PT JUST RESTED ON EDGE OF BED WITH WALKER IN FRONT OF HIM FOR 15 MINUTES PER HIS REQUEST. PT NOW ON COMMODE, HAD 3 PERSON ASSIST TO COMMODE. PT DENIES CHEST PAIN/PRESSURE. PT DENIES SOB. PT DENIES PAIN. 02 SATURATION ABOVE 92% ON 2L NC.
--- NOTE | 2023-01-10 16:23 | NUR ---
PT TRANSFERRED, MEDICAL STATUS. REPORT GIVEN TO ACCEPTING RN. TRANSFERRED VIA WHEELCHAIR. NO ACUTE DISTRESS AT TIME OF TRANSFER.
--- NOTE | 2023-01-10 18:22 | NUR ---
SHFIT SUMMARY PT TRANSFERED THIS AFTERNOON FROM PCU. ORIENTED TO ROOM. CALL LIGHT IN REACH. RECLINER CHAIR AND WIDE WALKER FOUND FOR LATER USE. PT RESTING IN BED. USING URINAL AT BEDSIDE. DENIES OTHER NEEDS AT THIS TIME. VS REVIEWED
[2023-01-10 18:27] VITALS: BP 136/43
[2023-01-10 20:00] VITALS: BP 130/56
--- NOTE | 2023-01-11 03:14 | NUR ---
MEDICAL OFFICE TECHNICIAN SUMMARY VSS. ACCU CHECK AT HS WAS 126. MED TELE SINUS RHYTHM WITH PVC'S AT 83. DRESSINGS SOF BLE INTACT. RECEIVED PAIN MEDS X 2 OF THIS WRITING FOR PAIN OF LEGS. LEGS ELEVATED ON PILLOWS AT INTERVALS PT ALLOWED. HAS BEEN RESTING QUIETLY WITH FEW INTERRUPTIONS SINCE ANALGESICS ADMINISTERED - SEE MAR FOR DETAILS. HOB ELEVATED FOR BREATHING COMFORT. NO C/O CHEST PAIN/PRESSURE. CALL LIGHT IN REACH. WILL CONTINUE TO MONITOR.
[2023-01-11 04:41] VITALS: BP 126/64
[2023-01-11 05:10] LABS: BASOPHILS ABSOLUTE AUTO 0.07 K/mm3 (0.00-0.23); BASOPHILS PERCENT AUTO 1 % (0-2); EOSINOPHILS ABSOLUTE AUTO 0.16 K/mm3 (0.00-0.68); EOSINOPHILS PERCENT AUTO 2 % (0-6); Hematocrit 30.6 % (37.0-53.0); Hemoglobin 9.4 g/dL (13.5-17.5); IMMATURE GRAN PERCENT AUTO 1 % (0-1); LYMPHOCYTES ABSOLUTE AUTO 1.16 K/mm3 (0.84-5.20); LYMPHOCYTES PERCENT AUTO 11 % (21-46); MONOCYTES ABSOLUTE AUTO 0.98 K/mm3 (0.16-1.47); MONOCYTES PERCENT AUTO 10 % (4-13); Mean Corpuscular HGB 30.3 pg (26.0-34.0); Mean Corpuscular HGB Conc 30.7 g/dL (31.5-36.5); Mean Corpuscular Volume 99 fL (80-100); Mean Platelet Volume 10.3 fL (9.1-12.4); NEUTROPHILS ABSOLUTE AUTO 7.89 K/mm3 (1.96-9.15); NEUTROPHILS PERCENT AUTO 76 % (41-73); Platelet Count 283 K/mm3 (150-400); RDW Coefficient Variation 16.4 % (11.7-14.2); RDW Standard Deviation 57.4 fL (35.1-46.3); White Blood Cell Count 10.36 K/mm3 (4.00-11.30)
[2023-01-11 05:36] LABS: Albumin, Blood 2.4 g/dL (3.4-5.0); Anion Gap 2 mmol/L (6-16); Blood Urea Nitrogen 20 mg/dL (8-24); Bun/Creatinine Ratio 23.8 (12.0-20.0); CO2, Blood 31 mmol/L (21-32); Calcium, Blood 7.7 mg/dL (8.5-10.1); Chloride, Blood 105 mmol/L (98-108); Creatinine, Blood 0.84 mg/dL (0.60-1.20); Glomerular Filtration Rate 89 (60-); Glucose, Blood 101 mg/dL (70-99); Phosphorus, Blood 2.4 mg/dL (2.5-4.9); Potassium, Blood 4.3 mmol/L (3.5-5.5); Sodium, Blood 138 mmol/L (136-145)
[2023-01-11 05:40] LABS: Prothrombin Time Results 46.7 Sec (9.7-11.5)
[2023-01-11 05:56] LABS: International Normalized Ratio 4.86
--- NOTE | 2023-01-11 06:16 | NUR ---
INR 4.86 - MD ORDERS TO HOLD ANTICOAGULANTS UNTIL INR WNL - RE EVAL WITH
[2023-01-11 07:55] VITALS: BP 116/67
--- NOTE | 2023-01-11 12:42 | NUR ---
"Spiritual Care | Nurse Request Pt. is awake in bed. Family memebers are present including Pts. son who is known to this marine railway operator outside the hospital. Pt. is pleasant. Facilitate a life review. Listen with empathy and interest and rapport is established. Pt. displays evidence of awareness and engagement. Pt. verbalizes that he is a man of babar. Prayed with Pt. Pt. and family verbalize gratitude for the spiritual care visit."
[2023-01-11 16:16] VITALS: BP 129/63
--- NOTE | 2023-01-11 18:25 | NUR ---
SHIFT SUMMARY PT UP TO CHAIR FOR MEALS THIS SHIFT. REQUIRES MOST HELP WITH GETTING TO THE SIDE OF BED. AMBULATES/TRANSFERS WELL ONCE STANDING. LOOSE STOOL THIS SHIFT IN BEDPAN. PT DID NOT ATTEMPT TO WALK TO THE BATHROOM FOR THIS IT WAS URGENT. WORKED WITH PT/OT TODAY. DRESSINGS CHANGED TO BLE. SMALL AMOUNT OF DRAINAGE. FAMILY AT BEDSIDE FOR THE MAJORITY OF THE DAY. NO OTHER ACUTE CHANGES IN ASSESSMENT AT THIS TIME. VS REVIEWED. CALL LIGHT IN REACH. DENIES OTHER NEEDS AT THIS TIME. POTENTIAL DC TOMORROW PER NOTE. MEDICATED FOR PAIN ONCE THIS SHIFT.
[2023-01-11 20:09] VITALS: BP 129/59
[2023-01-11 21:54] VITALS: BP 129/77
[2023-01-11 23:36] VITALS: BP 111/58
[2023-01-12 02:59] VITALS: BP 128/70
--- NOTE | 2023-01-12 03:53 | NUR ---
SHIFT SUMMARY PATIENT WITH NO ACUTE EVENTS DURING SHIFT. PATIENT UP WALLKING SBA WITH GAIT BELT AND WALKER TO DOOR AND BACK TO BED WITH HIP PRECAUTIONS. HONEYCOMB DRESSING INTACT, SCANT DRAINAGE TO INITIAL POST OP DRESSING. BED IN LOW POSITION, CALL LIGHT IN REACH. PATIENT CALLS APPROPRIATELY. WILL CONTINUE TO MONITOR.
[2023-01-12 05:40] LABS: BASOPHILS ABSOLUTE AUTO 0.05 K/mm3 (0.00-0.23); BASOPHILS PERCENT AUTO 1 % (0-2); EOSINOPHILS ABSOLUTE AUTO 0.17 K/mm3 (0.00-0.68); EOSINOPHILS PERCENT AUTO 2 % (0-6); Hematocrit 31.7 % (37.0-53.0); Hemoglobin 9.6 g/dL (13.5-17.5); IMMATURE GRAN PERCENT AUTO 1 % (0-1); LYMPHOCYTES ABSOLUTE AUTO 1.11 K/mm3 (0.84-5.20); LYMPHOCYTES PERCENT AUTO 11 % (21-46); MONOCYTES ABSOLUTE AUTO 1.01 K/mm3 (0.16-1.47); MONOCYTES PERCENT AUTO 10 % (4-13); Mean Corpuscular HGB 29.6 pg (26.0-34.0); Mean Corpuscular HGB Conc 30.3 g/dL (31.5-36.5); Mean Corpuscular Volume 98 fL (80-100); Mean Platelet Volume 10.1 fL (9.1-12.4); NEUTROPHILS ABSOLUTE AUTO 8.17 K/mm3 (1.96-9.15); NEUTROPHILS PERCENT AUTO 77 % (41-73); Platelet Count 295 K/mm3 (150-400); RDW Coefficient Variation 16.6 % (11.7-14.2); RDW Standard Deviation 57.9 fL (35.1-46.3); Red Blood Cell Count 3.24 M/mm3 (4.30-5.90); White Blood Cell Count 10.61 K/mm3 (4.00-11.30)
[2023-01-12 05:57] LABS: International Normalized Ratio 3.67; Prothrombin Time Results 35.8 Sec (9.7-11.5)
[2023-01-12 06:08] LABS: Bun/Creatinine Ratio 24.1 (12.0-20.0); Creatinine, Blood 0.79 mg/dL (0.60-1.20)
[2023-01-12 07:29] VITALS: BP 122/66
--- NOTE | 2023-01-12 14:21 | NUR ---
DISCHARGE NOTE PT DISCHARGE TO HOME, PICKED UP BY HIS AND SON. IV REMOVED BY DIGITAL PRINTER OPERATOR. TELE REMOVED. DISCHARGE INFORMATION AND EDUCATION PROVIDED. MEDICATIONS FAXED TO THE PHARMACY OF HIS CHOICE. DRESSING CHANGED COMPLETED BEFORE DISCHARGE. PERSONAL BELONGINGS RETURNED.
== END 2023-01-12 13:42 | disposition home or self-care (01) | DRG 280 ==
LOC: ER 22:51 → PCU 22:52 → MEDS 01-08 15:23 → PCU 01-08 15:30 → MEDS 01-10 16:23 → ENPENDDIS 01-12 11:37 → MEDS 01-12 13:42
PROVIDERS: Family Medicine; Internal Medicine; Student in an Organized Health Care Education/Training Program; ADMIT Internal Medicine
DX: I11.0 Hypertensive heart disease with heart failure (principal); I21.4 Non-ST elevation (NSTEMI) myocardial infarction; I50.43 Acute on chronic combined systolic (congestive) and diastolic (congestive) heart failure; Z68.41 Body mass index [BMI] 40.0-44.9, adult; I25.10 Atherosclerotic heart disease of native coronary artery without angina pectoris; Z95.0 Presence of cardiac pacemaker; E78.5 Hyperlipidemia, unspecified; G89.29 Other chronic pain; M54.50 Low back pain, unspecified; J45.909 Unspecified asthma, uncomplicated; K21.9 Gastro-esophageal reflux disease without esophagitis; D63.8 Anemia in other chronic diseases classified elsewhere; E66.9 Obesity, unspecified; M17.0 Bilateral primary osteoarthritis of knee; D72.828 Other elevated white blood cell count; H91.90 Unspecified hearing loss, unspecified ear; Z96.652 Presence of left artificial knee joint; Z95.2 Presence of prosthetic heart valve; Z98.61 Coronary angioplasty status; Z88.8 Allergy status to other drugs, medicaments and biological substances; Z98.890 Other specified postprocedural states; Z79.899 Other long term (current) drug therapy; Z79.01 Long term (current) use of anticoagulants
CPT/HCPCS: 36415; 80048; 80053; 80069; 82330; 82947; 83880; 85025; 85610; 93005; 93010; 94760; 96372; 96374; 97110; 97112; 97116; 97162; 97166; 97530; 97535; 99285-25; A9270; G0378; J1650; J1940

== ENCOUNTER 2024-02-08 08:48 | Day surgery (SDC) | payer MEDICARE, OTHER ==
[~2024-02-08] VITALS: Ht 180.3 cm; Wt 148.8 kg
[~2024-02-08 08:48] MED LIST changes: +ALBU90OI INH; +ATOR10 PO; +Aldactone25 MG PO; +Balanced Salt Epinephrine Irrigation Solution 500 mL IR SCH; +CLOP75 PO; +ENTRESTO 24 MG1 EACH PO; +FERSU300 PO; +FOLI1 PO; +HYDR1TAB94 PO; +Lidocaine HCl/Pf 1% 5 ML VIAL XX SCH; +METO50ER PO; +Moxifloxacin HCL 0.5 MG/0.1 ML 0.4MLSYR RIGHTEYE SCH; +NS 500 ML IV ONE; +ONDA4ODT MM; +PHENYLEPHRINE\\TROPICAMIDE\\TETRACAINE OPHTHALMIC DILATING SOLN RIGHTEYE PRN; +Povidone-Iodine 450 DROP/30 ML Solution ONE; +Povidone-Iodine 450 DROP/30 ML Solution RIGHTEYE SCH; +SYMBICORT 160-4.6 GM INH; +Tetracaine HCl/Pf 0.5% Opth Soln 4 ml ONE; +Triamcinolone Inj Susp 40 MG / ML 1ML Vial INJ SCH; +Triamcinolone Inj Susp 40 MG / ML 1ML Vial ONE
[2024-02-08] MEDS ORDERED: Diazepam 10 MG Tab ONE (09:06)
[2024-02-08] MEDS ORDERED: Isosorbide Mono30 MG PO (09:26)
[2024-02-08 10:46] VITALS: BP 151/77
--- NOTE | 2024-02-08 10:49 | NUR ---
02/08/24 1049 [facility] PT ASSISTED TO BR BY LUIS SALINAS PATIENT STATES THAT HE JUST HAS BALANCE ISSUES. PT DOES USE A WALKER. PT WAS TAKEN TO BR VIA
[2024-02-13] MEDS ORDERED: ALBU90OI INH (10:22)
[2024-02-13] MEDS ORDERED: LOW DOSE ASPIRI81 M1 PO (10:22)
[2024-02-13] MEDS ORDERED: LISI20 PO (10:27)
[2024-02-13] MEDS ORDERED: NITR.4SL (10:29)
[2024-02-13] MEDS ORDERED: Lopressor 25 mg25 MG PO (10:29)
[2024-02-13] MEDS ORDERED: DEPO-TESTO200 MG/11 INJ (10:34)
[2024-02-13] MEDS ORDERED: TOPI50 PO (10:35)
[2024-02-13] MEDS ORDERED: Adipex-P37.5 M1 PO (10:35)
[2024-02-13] MEDS ORDERED: Vitamin K100 MCG PO (10:37)
[2024-02-13] MEDS ORDERED: PRAVASTATIN SOD40 MG PO (10:38)
[2024-02-13] MEDS ORDERED: POTA10T PO (10:38)
[2024-02-13] MEDS ORDERED: RANEXA1000 M1 (10:39)
== END 2024-02-08 11:03 | disposition home or self-care (01) ==
LOC: ORSCSDS 08:48
PROVIDERS: Ophthalmology
PROC: 08RJ3JZ Replacement of Right Lens with Synthetic Substitute, Percutaneous Approach (ICD-10-PCS; principal; 2024-02-08 10:00)
DX: H25.811 Combined forms of age-related cataract, right eye (principal); I25.2 Old myocardial infarction; I25.10 Atherosclerotic heart disease of native coronary artery without angina pectoris; K21.9 Gastro-esophageal reflux disease without esophagitis; E78.5 Hyperlipidemia, unspecified; Z95.0 Presence of cardiac pacemaker; E66.9 Obesity, unspecified; Z68.42 Body mass index [BMI] 45.0-49.9, adult; Z79.899 Other long term (current) drug therapy
CPT/HCPCS: A9270; J3301; J7040; V2632

== ENCOUNTER 2024-02-22 08:49 | Day surgery (SDC) | payer MEDICARE, OTHER ==
[~2024-02-22] VITALS: Ht 180.3 cm; Wt 146.8 kg
[~2024-02-22 08:49] MED LIST changes: +Adipex-P37.5 M1 PO; +DEPO-TESTO200 MG/11 INJ; +Isosorbide Mono30 MG PO; +LISI20 PO; +LOW DOSE ASPIRI81 M1 PO; +Lopressor 25 mg25 MG PO; +Moxifloxacin HCL 0.5 MG/0.1 ML 0.4MLSYR LEFTEYE SCH; -Moxifloxacin HCL 0.5 MG/0.1 ML 0.4MLSYR RIGHTEYE SCH; +NITR.4SL; +PHENYLEPHRINE\\TROPICAMIDE\\TETRACAINE OPHTHALMIC DILATING SOLN LEFTEYE PRN; -PHENYLEPHRINE\\TROPICAMIDE\\TETRACAINE OPHTHALMIC DILATING SOLN RIGHTEYE PRN; +PRAVASTATIN SOD40 MG PO; +Povidone-Iodine 450 DROP/30 ML Solution LEFTEYE SCH; -Povidone-Iodine 450 DROP/30 ML Solution RIGHTEYE SCH; +RANEXA1000 M1; +TOPI50 PO; +Vitamin K100 MCG PO
[2024-02-22] MEDS ORDERED: Midazolam HCl 1MG / ML 2ML Vial ONE (09:49)
[2024-02-22] MEDS ORDERED: NS 500 ML IV ONE ×2 (09:50→09:51)
[2024-02-22 10:20] VITALS: BP 152/88
== END 2024-02-22 10:31 | disposition home or self-care (01) ==
LOC: ORSCSDS 08:49
PROVIDERS: Ophthalmology
PROC: 08RK3JZ Replacement of Left Lens with Synthetic Substitute, Percutaneous Approach (ICD-10-PCS; principal; 2024-02-22 10:00)
DX: H25.812 Combined forms of age-related cataract, left eye (principal); Z96.1 Presence of intraocular lens; I10 Essential (primary) hypertension; E78.5 Hyperlipidemia, unspecified; I25.10 Atherosclerotic heart disease of native coronary artery without angina pectoris; G47.33 Obstructive sleep apnea (adult) (pediatric); K21.9 Gastro-esophageal reflux disease without esophagitis; Z95.0 Presence of cardiac pacemaker; Z79.02 Long term (current) use of antithrombotics/antiplatelets; Z79.899 Other long term (current) drug therapy
CPT/HCPCS: J2250; J3301; J7040; V2632